=== PATIENT | female | born 1990 | race African-American/Black ===

== ENCOUNTER 2016-10-04 20:19 | Inpatient (IN) | payer MEDICAID, OTHER ==
[~2016-10-04] VITALS: Ht 165.1 cm; Wt 70.3 kg
[2016-10-04] MEDS ORDERED: LACTATED RINGERS 1,000 ML IV SCH (20:48)
[2016-10-04] MEDS ORDERED: PENICILLIN G POTASSIUM 5 MMU in DEXT 5% WATER 100 ML IV SCH (21:00)
[2016-10-04] MEDS ORDERED: NALOXONE HCL 0.4 MG/ML 1ML VIAL IM PRN (21:00)
[2016-10-04] MEDS ORDERED: CARBOPROST TROMETHAMINE 250 MCG/ML AMPUL IM PRN (21:00)
[2016-10-04] MEDS ORDERED: METHYLERGONOVINE MALEATE 0.2 MG/ML IM PRN (21:00)
[2016-10-04 21:03] LABS: BASOPHILS % 0.3 % (0.0-2.0); EOSINOPHILS % 0.2 % (0.0-5.0); HEMATOCRIT. 30.3 % (36.0-48.0); HEMOGLOBIN. 9.9 g/dL (12.0-16.0); LYMPHOCYTES % 27.6 % (20.0-50.0); MEAN CORPUSCULAR HEMOGLOBIN 24.8 pg (28.0-32.0); MEAN CORPUSCULAR VOLUME 75.8 fL (81.0-99.0); MEAN PLATELET VOLUME 9.8 fl (7.4-10.4); MONOCYTES % 7.5 % (2.0-8.0); NEUTROPHILS % 64.4 % (40.0-76.0); PLATELET 138 x1000/uL (130-400); RED BLOOD CELL COUNT 3.99 mill/uL (4.2-5.4); RED CELL DISTRIBUTION WIDTH 15.2 % (11.6-14.6)
[2016-10-04 21:04] LABS: CLARITY URINE CLEAR (CLEAR); COLOR URINE YELLOW (YELLOW); GLUCOSE URINE NEGATIVE (NEGATIVE); KETONES URINE NEGATIVE (NEGATIVE); LEUKOCYTE ESTERASE URINE NEGATIVE (NEGATIVE); NITRITE URINE NEGATIVE (NEGATIVE); OCCULT BLOOD URINE TRACE (NEGATIVE); PH URINE 7.5 (4.5-8.0); PROTEIN URINE NEGATIVE (NEGATIVE); SPECIFIC GRAVITY URINE 1.004 (1.005-1.030); UROBILINOGEN URINE 0.2 E.U./dL (0.2-1.0)
[2016-10-04 21:08] LABS: INR 0.9; PARTIAL THROMBOPLASTIN TIME 28.4 sec (24.0-34.0); PROTHROMBIN TIME 9.4 sec
[2016-10-04 21:13] LABS: CARBON DIOXIDE 18 mEq/L (21-32); CHLORIDE 103 mEq/L (98-107)
[2016-10-04] MEDS ORDERED: FENTANYL CITRATE/PF 50MCG/ML 2ML VIAL ONE (21:13)
[2016-10-04 21:14] LABS: *BARBITURATES SCREEN URINE NEGATIVE (NEGATIVE); *BENZODIAZEPINES SCREEN URINE NEGATIVE (NEGATIVE); *COCAINE SCREEN URINE NEGATIVE (NEGATIVE); CANNABINOID URINE SCREEN NEGATIVE (NEGATIVE); METHADONE URINE SCREEN NEGATIVE (NEGATIVE); OPIATES URINE SCREEN NEGATIVE (NEGATIVE); PHENCYCLIDINE URINE SCREEN NEGATIVE (NEGATIVE)
[2016-10-04 21:19] LABS: *AMPHETAMINES SCREEN URINE PRESUMTIVE POSITIVE (NEGATIVE)
[2016-10-04] MEDS ORDERED: PROPOFOL 200MG/20ML VIAL IV ONE (21:19)
[2016-10-04] MEDS ORDERED: SUCCINYLCHOLINE CHLORIDE 200MG/10ML VIAL IV ONE (21:19)
[2016-10-04 21:40] LABS: HEPATITIS B SURFACE ANTIGEN NEGATIVE; RUBELLA IGG 122.3 IU/mL (4.99-10)
[2016-10-04] MEDS: DEXT 5%/LR + PITOCIN 20UNITS/L 1,000 ML IV SCH ×2 (21:52→23:47)
[2016-10-04] MEDS ORDERED: DEXT 5%/LR + PITOCIN 20UNITS/L 1,000 ML IV SCH (22:05)
[2016-10-04] MEDS ORDERED: GLYCERIN/WITCH HAZEL LEAF MEDICATED PAD TOP PRN (22:15)
[2016-10-04] MEDS ORDERED: ACETAMINOPHEN WITH CODEINE 300/30MG TABLET PO PRN (22:15)
[2016-10-04] MEDS ORDERED: LANOLIN OINT 0.25 GM TUBE TOP PRN (22:15)
[2016-10-04] MEDS ORDERED: HEMORRHOIDAL SUPP PR PRN (22:15)
[2016-10-04] MEDS ORDERED: BISACODYL 10MG SUPP PR PRN (22:15)
[2016-10-04] MEDS: ACETAMINOPHEN WITH CODEINE 300/30MG TABLET PO PRN (23:46)
[2016-10-05 00:50] VITALS: BP 116/60
[2016-10-05 01:30] VITALS: BP 134/48
[2016-10-05 02:00] VITALS: BP 121/66
[2016-10-05] MEDS: ACETAMINOPHEN WITH CODEINE 300/30MG TABLET PO PRN ×2 (03:57→17:44)
[2016-10-05 07:09] LABS: BASOPHILS % 0.1 % (0.0-2.0); EOSINOPHILS % 0.1 % (0.0-5.0); HEMATOCRIT. 26.4 % (36.0-48.0); HEMOGLOBIN. 8.4 g/dL (12.0-16.0); LYMPHOCYTES % 16.7 % (20.0-50.0); MEAN CORPUSCULAR HEMOGLOBIN 24.6 pg (28.0-32.0); MEAN CORPUSCULAR VOLUME 77.4 fL (81.0-99.0); MEAN PLATELET VOLUME 9.6 fl (7.4-10.4); MONOCYTES % 6.4 % (2.0-8.0); NEUTROPHILS % 76.7 % (40.0-76.0); PLATELET 120 x1000/uL (130-400); RED BLOOD CELL COUNT 3.41 mill/uL (4.2-5.4); RED CELL DISTRIBUTION WIDTH 15.4 % (11.6-14.6)
[2016-10-05 08:20] VITALS: BP 113/63
[2016-10-05] MEDS: MAGNESIUM/ALUMINUM HYDROXIDE/SIMETHICONE 30ML UDC PO SCH ×3 (08:39→20:52)
[2016-10-05] MEDS: SIMETHICONE 80MG TABLET CHEW PO SCH ×4 (08:40→20:53)
[2016-10-05] MEDS: PRENATAL VIT/FE FUMARATE/FA TABLET PO SCH (08:40)
[2016-10-05] MEDS: FERROUS SULFATE 325MG TABLET PO SCH ×2 (13:20→17:44)
[2016-10-05] MEDS ORDERED: PENICILLIN G BENZATHINE 2,400,000 UNITS/4ML SYR IM NR (15:30)
[2016-10-05 16:00] VITALS: BP 102/52
[2016-10-05] MEDS: IBUPROFEN 400MG TABLET PO PRN (18:55)
[2016-10-05 20:00] VITALS: BP 130/83
[2016-10-05] MEDS ORDERED: DOCUSATE SODIUM 100MG CAPSULE PO SCH (21:00)
[2016-10-06] VITALS: BP 126/79
[2016-10-06] MEDS: IBUPROFEN 400MG TABLET PO PRN (04:15)
[2016-10-06] MEDS: ACETAMINOPHEN WITH CODEINE 300/30MG TABLET PO PRN (04:16)
[2016-10-06 04:18] VITALS: BP 122/55
[2016-10-06 07:42] VITALS: BP 110/62
[2016-10-06] MEDS: MAGNESIUM/ALUMINUM HYDROXIDE/SIMETHICONE 30ML UDC PO SCH (08:20)
[2016-10-06] MEDS: FERROUS SULFATE 325MG TABLET PO SCH (08:23)
[2016-10-06] MEDS: PRENATAL VIT/FE FUMARATE/FA TABLET PO SCH (08:23)
[2016-10-06] MEDS: SIMETHICONE 80MG TABLET CHEW PO SCH (08:25)
[2016-10-12 13:09] LABS: AMPHETAMINE CONF URINE Positive (.)
== END 2016-10-06 16:20 | disposition home or self-care (01) | DRG 560 ==
LOC: OBSVTOIN 20:19 → L&D 20:19 → 7EST PP/OB 10-05 00:34
PROVIDERS: ADMIT Obstetrics & Gynecology; ATTEND Obstetrics & Gynecology
PROC: 10E0XZZ Delivery of Products of Conception, External Approach (ICD-10-PCS; principal; 2016-10-04 21:22)
DX: O77.0 Labor and delivery complicated by meconium in amniotic fluid (principal); O99.324 Drug use complicating childbirth; O69.1XX0 Labor and delivery complicated by cord around neck, with compression, not applicable or unspecified; F15.90 Other stimulant use, unspecified, uncomplicated; Z3A.37 37 weeks gestation of pregnancy; Z37.0 Single live birth
CPT/HCPCS: 36415; 80053; 80305; 80307; 81001; 84550; 85025; 85384; 85610; 85730; 86592; 86593; 86703; 86762; 86780; 86850; 86900; 87340; G0378; J0330; J0561; J2310; J2540; J2590; J2704; J3010; J7060; J7120; A4315

== ENCOUNTER 2016-12-18 16:02 | Emergency (ER) | payer MEDICAID ==
[~2016-12-18] VITALS: Ht 167.6 cm; Wt 65.0 kg
[2016-12-19] MEDS ORDERED: KETOROLAC 30MG/ML VIAL IV ONE (06:45)
[2016-12-19 07:31] LABS: CLARITY URINE TURBID (CLEAR); COLOR URINE YELLOW (YELLOW); GLUCOSE URINE NEGATIVE (NEGATIVE); KETONES URINE 1+ (NEGATIVE); LEUKOCYTE ESTERASE URINE 3+ (NEGATIVE); NITRITE URINE POSITIVE (NEGATIVE); OCCULT BLOOD URINE TRACE (NEGATIVE); PH URINE 5.5 (4.5-8.0); PROTEIN URINE 1+ (NEGATIVE); SPECIFIC GRAVITY URINE 1.018 (1.005-1.030); UROBILINOGEN URINE 0.2 E.U./dL (0.2-1.0)
[2016-12-19 07:37] LABS: BASOPHILS % 0.2 % (0.0-2.0); EOSINOPHILS % 0.1 % (0.0-5.0); HEMATOCRIT. 33.8 % (36.0-48.0); HEMOGLOBIN. 10.8 g/dL (12.0-16.0); LYMPHOCYTES % 15.5 % (20.0-50.0); MEAN CORPUSCULAR HEMOGLOBIN 23.5 pg (28.0-32.0); MEAN CORPUSCULAR VOLUME 73.9 fL (81.0-99.0); MONOCYTES % 13.9 % (2.0-8.0); NEUTROPHILS % 70.3 % (40.0-76.0); PLATELET 202 x1000/uL (130-400); RED BLOOD CELL COUNT 4.57 mill/uL (4.2-5.4); RED CELL DISTRIBUTION WIDTH 19.3 % (11.6-14.6)
[2016-12-19 07:45] LABS: CARBON DIOXIDE 27 mEq/L (21-32); CHLORIDE 99 mEq/L (98-107)
[2016-12-19 08:03] VITALS: BP 114/67
== END 2016-12-19 09:30 | disposition left against medical advice (07) ==
LOC: ER 16:02
DX: R10.9 Unspecified abdominal pain (principal)
CPT/HCPCS: 36415; 80053; 81001; 81025; 85025; 96374; 99284; J1885

== ENCOUNTER 2017-05-22 17:15 | Emergency (ER) | payer MEDICAID, OTHER ==
[~2017-05-22] VITALS: Ht 165.1 cm; Wt 65.0 kg
[2017-05-22 20:35] LABS: BASOPHILS % 0.5 % (0.0-2.0); EOSINOPHILS % 2.8 % (0.0-5.0); HEMATOCRIT. 36.7 % (36.0-48.0); HEMOGLOBIN. 12.1 g/dL (12.0-16.0); LYMPHOCYTES % 39.6 % (20.0-50.0); MEAN CORPUSCULAR HEMOGLOBIN 26.6 pg (28.0-32.0); MEAN CORPUSCULAR VOLUME 80.5 fL (81.0-99.0); MEAN PLATELET VOLUME 7.6 fl (7.4-10.4); NEUTROPHILS % 49.1 % (40.0-76.0); PLATELET 292 x1000/uL (130-400); RED BLOOD CELL COUNT 4.56 mill/uL (4.2-5.4); RED CELL DISTRIBUTION WIDTH 15.7 % (11.6-14.6)
[2017-05-22 20:40] LABS: CHLORIDE 106 mEq/L (98-107)
[2017-05-23 00:25] LABS: CLARITY URINE CLOUDY (CLEAR); COLOR URINE YELLOW (YELLOW); KETONES URINE NEGATIVE (NEGATIVE); LEUKOCYTE ESTERASE URINE NEGATIVE (NEGATIVE); NITRITE URINE POSITIVE (NEGATIVE); OCCULT BLOOD URINE NEGATIVE (NEGATIVE); PROTEIN URINE NEGATIVE (NEGATIVE); SPECIFIC GRAVITY URINE 1.033 (1.005-1.030)
[2017-05-23] MEDS ORDERED: ACETAMINOPHEN 325MG TABLET PO STA (06:28)
[2017-05-23 10:14] VITALS: BP 111/60
== END 2017-05-23 10:52 | disposition home or self-care (01) ==
LOC: ER 17:23
DX: O23.41 Unspecified infection of urinary tract in pregnancy, first trimester (principal); O99.511 Diseases of the respiratory system complicating pregnancy, first trimester; J45.909 Unspecified asthma, uncomplicated; O16.1 Unspecified maternal hypertension, first trimester; Z3A.01 Less than 8 weeks gestation of pregnancy
CPT/HCPCS: 36415; 76801; 80053; 81003; 81025; 83690; 84702; 85025; 86850; 86900; 86901; 99285; Z7610

== ENCOUNTER 2017-06-05 00:19 | Emergency (ER) | payer MEDICAID ==
[~2017-06-05] VITALS: Ht 167.6 cm; Wt 61.0 kg
[2017-06-05 00:21] VITALS: BP 114/71
== END 2017-06-05 03:00 | disposition left against medical advice (07) ==
LOC: ER 00:29
DX: N93.8 Other specified abnormal uterine and vaginal bleeding (principal); Z53.21 Procedure and treatment not carried out due to patient leaving prior to being seen by health care provider

== ENCOUNTER 2017-06-05 07:00 | Emergency (ER) | payer MEDICAID ==
[~2017-06-05] VITALS: Ht 162.6 cm; Wt 53.0 kg
[2017-06-05 07:24] VITALS: BP 114/69
== END 2017-06-05 09:06 | disposition left against medical advice (07) ==
LOC: ER 07:00
DX: O26.891 Other specified pregnancy related conditions, first trimester (principal); R30.0 Dysuria; Z3A.01 Less than 8 weeks gestation of pregnancy; Z53.21 Procedure and treatment not carried out due to patient leaving prior to being seen by health care provider

== ENCOUNTER 2017-06-12 12:32 | Emergency (ER) | payer MEDICAID ==
[~2017-06-12] VITALS: Ht 162.6 cm; Wt 60.0 kg
[2017-06-12] MEDS ORDERED: FAMOTIDINE 20MG/2ML VIAL IV STA (16:11)
[2017-06-12] MEDS ORDERED: SODIUM CHLORIDE 0.9% 1,000 ML IV ONE (16:11)
[2017-06-12] MEDS ORDERED: ONDANSETRON HCL 4MG/2ML VIAL IV STA (16:11)
[2017-06-12 16:51] LABS: BASOPHILS % 0.5 % (0.0-2.0); EOSINOPHILS % 1.2 % (0.0-5.0); HEMATOCRIT. 35.4 % (36.0-48.0); HEMOGLOBIN. 11.8 g/dL (12.0-16.0); MEAN PLATELET VOLUME 7.5 fl (7.4-10.4); MONOCYTES % 6.3 % (2.0-8.0); PLATELET 301 x1000/uL (130-400); RED BLOOD CELL COUNT 4.37 mill/uL (4.2-5.4); RED CELL DISTRIBUTION WIDTH 15.3 % (11.6-14.6)
[2017-06-12 16:52] LABS: CHLORIDE 101 mEq/L (98-107)
[2017-06-12 17:15] LABS: B-HCG QUANTITATIVE 76742 mIU/mL (<3)
[2017-06-12 20:47] LABS: CLARITY URINE CLEAR (CLEAR); COLOR URINE YELLOW (YELLOW); KETONES URINE NEGATIVE (NEGATIVE); LEUKOCYTE ESTERASE URINE TRACE (NEGATIVE); NITRITE URINE NEGATIVE (NEGATIVE); OCCULT BLOOD URINE NEGATIVE (NEGATIVE); PH URINE 6.5 (4.5-8.0); PROTEIN URINE NEGATIVE (NEGATIVE); UROBILINOGEN URINE 0.2 E.U./dL (0.2-1.0)
[2017-06-12] MEDS ORDERED: FOLIC ACID 1 MG, THIAMINE HCL 100 MG, MVI, ADULT NO.1 10 ML in DEXTROSE 5% WATER 1,000 ML IV ONE ×4 (21:00)
[2017-06-12 23:14] VITALS: BP 110/67
== END 2017-06-12 23:17 | disposition home or self-care (01) ==
LOC: ER 13:09
DX: O20.8 Other hemorrhage in early pregnancy (principal); O21.9 Vomiting of pregnancy, unspecified; O26.891 Other specified pregnancy related conditions, first trimester; R19.7 Diarrhea, unspecified; O99.511 Diseases of the respiratory system complicating pregnancy, first trimester; J45.909 Unspecified asthma, uncomplicated; O16.1 Unspecified maternal hypertension, first trimester; O24.911 Unspecified diabetes mellitus in pregnancy, first trimester; Z3A.09 9 weeks gestation of pregnancy
CPT/HCPCS: 36415; 76801; 80053; 81003; 83690; 84702; 85025; 96365; 99285; J3411; J3490; J7030; J7070; Z7610

== ENCOUNTER 2017-10-20 16:06 | Emergency (ER) | payer MEDICAID, OTHER ==
[~2017-10-20] VITALS: Ht 167.6 cm; Wt 76.0 kg
[2017-10-21 04:00] VITALS: BP 99/62
[2017-10-21] MEDS ORDERED: ACETAMINOPHEN 325MG TABLET PO ONE (05:00)
== END 2017-10-21 08:58 | disposition home or self-care (01) ==
LOC: ER 16:06
DX: O26.893 Other specified pregnancy related conditions, third trimester (principal); S09.8XXA Other specified injuries of head, initial encounter; S05.11XA Contusion of eyeball and orbital tissues, right eye, initial encounter; M47.892 Other spondylosis, cervical region; Z3A.28 28 weeks gestation of pregnancy; Z59.0 Homelessness; Y00.XXXA Assault by blunt object, initial encounter; Y93.89 Activity, other specified; Y92.488 Other paved roadways as the place of occurrence of the external cause
CPT/HCPCS: 70450; 70486; 72125; 76805; 99284; Z7610

== ENCOUNTER 2020-07-24 11:27 | Emergency (ER) | payer MEDICAID, OTHER ==
[~2020-07-24] VITALS: Ht 167.6 cm; Wt 68.0 kg
[2020-07-24] MEDS ORDERED: MORPHINE SULFATE 4 MG/ML CPJ (NOT FOR IM USE) IV ONE (11:45)
[2020-07-24] MEDS ORDERED: SODIUM CHLORIDE 0.9% 1,000 ML IV ONE (11:45)
[2020-07-24] MEDS ORDERED: ONDANSETRON HCL 4MG/2ML INJ IV ONE (11:45)
[2020-07-24 12:50] LABS: BASOPHILS % 0.8 % (0.0-2.0); EOSINOPHILS % 1.8 % (0.0-5.0); HEMATOCRIT. 37.6 % (36.0-48.0); HEMOGLOBIN. 12.4 g/dL (12.0-16.0); LYMPHOCYTES % 25.6 % (20.0-50.0); MEAN CORPUSCULAR HEMOGLOBIN 28.2 pg (28.0-32.0); MEAN PLATELET VOLUME 8.6 fl (7.4-10.4); MONOCYTES % 10.2 % (2.0-8.0); NEUTROPHILS % 61.6 % (40.0-76.0); PLATELET 253 x1000/uL (130-400); RED BLOOD CELL COUNT 4.42 mill/uL (4.2-5.4); RED CELL DISTRIBUTION WIDTH 13.9 % (11.6-14.6)
[2020-07-24 12:55] LABS: CHLORIDE 114 mEq/L (98-107)
[2020-07-24 12:58] LABS: INR 0.9; PROTHROMBIN TIME 9.9 sec (9.6-11.0)
[2020-07-24 13:06] LABS: B-HCG QUANTITATIVE < 1 mIU/mL (<3)
[2020-07-24] MEDS ORDERED: POTASSIUM CHLORIDE 20MEQ TABLET SR PO NR (13:30)
[2020-07-24 16:19] VITALS: BP 112/71
== END 2020-07-24 16:22 | disposition home or self-care (01) ==
LOC: ER 11:27
DX: R10.2 Pelvic and perineal pain (principal); I10 Essential (primary) hypertension; E86.0 Dehydration
CPT/HCPCS: 36415; 80053; 84702; 85025; 85610; 86850; 86900; 86901; 93005; 96360; 99284; J7030; J2270; J2405

== ENCOUNTER 2022-07-09 22:54 | Emergency (ER) | payer MEDICAID ==
[~2022-07-09] VITALS: Ht 165.1 cm; Wt 60.0 kg
[2022-07-09 22:56] VITALS: BP 132/82
[2022-07-10] MEDS ORDERED: ERYT1OIN6 EACHEYE (02:06)
== END 2022-07-10 03:07 | disposition home or self-care (01) ==
LOC: ER 22:54
DX: H10.9 Unspecified conjunctivitis (principal); F41.9 Anxiety disorder, unspecified; F31.9 Bipolar disorder, unspecified; E11.9 Type 2 diabetes mellitus without complications; I10 Essential (primary) hypertension; F15.10 Other stimulant abuse, uncomplicated
CPT/HCPCS: 81025; 82962; 99283